=== PATIENT | male | born 1955 | race Caucasian/White ===

== ENCOUNTER 2018-08-31 17:09 | Emergency (ER) | payer OTHER ==
[~2018-08-31] VITALS: Ht 190.5 cm; Wt 104.3 kg
[~2018-08-31 17:09] MED LIST: BUTALB-APAP-CA1 EACH PO; FLOMAX0.4 MG PO; IMITREX 50 MG T50 MG PO; UNICOMPLEX M TA1 TA1 PO
[2018-08-31] MEDS ORDERED: KEFLEX500 M1 PO (18:40)
[2018-08-31 19:10] VITALS: BP 174/97
== END 2018-08-31 19:10 | disposition home or self-care (01) ==
LOC: ER 17:09
DX: S62.603A Fracture of unspecified phalanx of left middle finger, initial encounter for closed fracture (principal); S60.222A Contusion of left hand, initial encounter; G43.909 Migraine, unspecified, not intractable, without status migrainosus; X58.XXXA Exposure to other specified factors, initial encounter; Y93.89 Activity, other specified; Y92.89 Other specified places as the place of occurrence of the external cause; Y99.8 Other external cause status